=== PATIENT | male | born 1990 | race Caucasian/White ===

== ENCOUNTER 2025-06-16 23:06 | Emergency (ER) | payer MEDICARE, OTHER, SELFPAY ==
[2025-06-16] MEDS ORDERED: Methocarbamol 500 MG TAB ONE (23:13)
== END 2025-06-17 00:10 | disposition home or self-care (01) ==
LOC: NAV ERS 23:06
DX: S09.8XXA Other specified injuries of head, initial encounter (principal); S20.219A Contusion of unspecified front wall of thorax, initial encounter; Y04.0XXA Assault by unarmed brawl or fight, initial encounter
CPT/HCPCS: 70450; 71046; 72125